=== PATIENT | male | born 1970 | race Caucasian/White ===

== ENCOUNTER → 2016-09-26 | Outpatient (REF) ==
[~2016-09-26] MED LIST: /ESCI20TA OR; /PANT40TA OR; /ROPI25TA OR; AMBI10TA OR; AMLO5TAB2 PO; ATOM60CA PO; BUSP10TA PO; CHLO200T OR; COGE1INJ PO; COZA100T2 PO; COZA50TA18 OR; FOLI1TAB2 PO; FOLIC; FOLITAB11 PO; GABA-282 PO; HALOPERIDOL DECANOATE; INVE156I IM; LEXA1TAB PO; LEXA1TAB2 PO; METF1000 PO; METF500T4 OR; MULTCAP PO; MULTIVIT PO; NALT50TA4 PO; NORV5TAB PO; PANT40TA2 PO; PROP1TAB29 PO; PROP20TA PO; PROPRANOLOL; RISP37INJ IM; RISP4TAB33 PO; ROPI0.25 PO; THIA100T PO; THIAMINE; TRAZ100T4 PO; TRAZ50TA4 PO; VIT D PO; VITA200016 PO; ZOCOR PO; [UNRECOGNIZED DRUG - OTHER]; [UNRECOGNIZED DRUG - OTHER]; campral; haldol decanoate IM
== END ==
LOC: M LAB 09:57
DX: Z02.89 Encounter for other administrative examinations (principal)